=== PATIENT | male | born 1975 | race African-American/Black ===

== ENCOUNTER → 2017-04-28 | Outpatient (CLI) | payer MEDICARE, OTHER ==
--- NOTE | 2017-04-29 06:37 | PN ---
DATE OF SERVICE: 04/28/2017 A 41-year-old gentleman who had been followed in the sleep center for treatment of obstructive sleep apnea/hypopnea syndrome. Patient had polysomnogram in 05/27/2015, which showed moderate close to severe obstructive sleep apnea-hypopnea syndrome with apnea-hypopnea index 27.1. After that, patient had surgery on his thyroid and did not come for the CPAP treatment. At the present time, his sleep schedule is [id number] and 11 and about 6 he gets up and then about 8 he goes back to bed. During sleep, he snores loudly and according to his he has episodes of stopped breathing during the sleep. [place] Sleepiness Scale significantly increased to 16. MEDICATIONS: Depakote, Risperdal, Celexa, Lipitor. PHYSICAL EXAMINATION: During physical exam, patient in no distress. VITAL SIGNS: BP 110/74, HR 82, RR 16. Height 5 feet 9 inches. Weight 253, BMI 37.3. Temperature 98.4. Oxygen saturation at room air 100%. HEENT: PERRLA. EOMI. Oropharynx extremely low position of soft palate. Mallampati IV. NECK: Supple. No JVD, Thyroid is not palpable. LUNGS: Clear to percussion and to auscultation. Good air exchange. No wheezing or rhonchi. HEART: S1, S2 regular. No murmurs, gallops, or rubs. ABDOMEN: Slightly obese. GAMING DEPARTMENT HEAD: Awake, alert, and oriented x3. Cranial nerves 2 to 7 intact. There is no fasciculation or atrophy noted. No focal deficits observed. IMPRESSION: 1. Snoring, witnessed episodes of stopped breathing during sleep, extremely low position of soft palate, history of obstructive sleep apnea-hypopnea syndrome in the past, obstructive sleep apnea-hypopnea syndrome. 2. Obesity; body mass index of 37.3. 3. Hyperlipidemia. 4. Bipolar disorder. 5. History of migraines. 6. Status post closed head injury. 7. Status post goiter removed around 2 years ago. PLAN: 1. Polysomnography for re-evaluation of patient's breathing during this visit. 2. CPAP titration for correction of respiratory abnormalities during sleep. 3. Watching and losing weight. 4. Patient does not drive. Thank you very much for allowing me to participate in the management of your patient. Sincerely, Stephen Mcguire MD, PhD, FAASM Diplomat of [place] [employer], Sleep Medicine Board by [place] [employer] [employer] Car Rental Agency Manager of [facility] [place]
== END | disposition home or self-care (01) ==
LOC: SLEEP 16:03
PROVIDERS: ATTEND Internal Medicine
DX: G47.33 Obstructive sleep apnea (adult) (pediatric) (principal); F31.9 Bipolar disorder, unspecified; E66.9 Obesity, unspecified; E78.5 Hyperlipidemia, unspecified; Z79.899 Other long term (current) drug therapy

== ENCOUNTER → 2017-09-14 | Outpatient (CLI) | payer MEDICARE, OTHER ==
--- NOTE | 2017-09-14 17:59 | PN ---
PROGRESS NOTE DATE OF SERVICE: 09/14/2017 HISTORY: This patient is a 42-year-old gentleman has been followed in the Sleep Center for treatment of obstructive sleep apnea-hypopnea syndrome. The patient recently has been diagnosed with severe obstructive sleep apnea and had CPAP titration which indicated recommended CPAP pressure is 19 cm of water. Presently, patient for about 2 months on treatment with CPAP, able to use it every night without significant problems and today he came for followup visit to check his compliance and to make any necessary adjustments. I checked his CPAP unit. Usage is every night 27/30 nights for more than 4 hours. Average usage is 5.8 hours. Leak is 30 L/minute. Apnea-hypopnea index is 3.0, which is great. [place] Sleepiness Scale today is 12, slightly above normal. MEDICATIONS: Depakote, Risperdal, Celexa, Lipitor. PHYSICAL EXAM: Patient in no distress, BP 131/74, HR 80, RR 14, weight 268, temp 98.2, oxygen saturation on room air 99%. Oropharynx low position of soft palate. Neck Supple, no JVD. Thyroid is not palpable. LUNGS Clear to percussion and to auscultation. Good air exchange. No wheezing or rhonchi. HEART S1, S2 regular. No murmurs, gallops, or rubs. ABDOMEN: Obese. Soft and nontender. Bowel sounds are present. No organomegaly appreciated. EXTREMITIES No clubbing or cyanosis. CHANNEL EXECUTIVE Awake, alert, and oriented X3. Cranial nerves 2 to 7 intact. There is no fasciculation or atrophy noted. No focal deficits observed. IMPRESSION: 1. Severe obstructive sleep apnea-hypopnea syndrome; apnea-hypopnea index 48.2 on control with CPAP at 19 cm of water. Apnea-hypopnea index reading from the machine is 3.0, which is normal range. The patient demonstrated very good compliance with treatment benefitting from treatment. 2. Obesity. 3. Hyperlipidemia. 4. Bipolar disorder. 5. History of migraine. 6. History of goiter status post goiter removed about 2-1/2 years ago. 7. Status post closed head injury. PLAN: 1. Patient will continue to use his CPAP equipment every night. 2. Losing weight. Patient gained about 16 pounds since previous visit. 3. Sleep hygiene with regular time in bed for at least [address] Patient [address] 5. Prescription for all necessary CPAP supplies including mask, tube, filters. Thank you very much for allowing me to participate in management of your patient. Sincerely, Stephen Mcguire MD, PhD, FAASM Diplomat of [employer] Filler Feeder of [facility] [place] MMODL / JH: [id number] /
== END ==
LOC: SLEEP 16:14
PROVIDERS: ATTEND Internal Medicine
DX: G47.33 Obstructive sleep apnea (adult) (pediatric) (principal); E66.9 Obesity, unspecified; E78.5 Hyperlipidemia, unspecified; F31.9 Bipolar disorder, unspecified; G43.909 Migraine, unspecified, not intractable, without status migrainosus; Z98.890 Other specified postprocedural states; Z79.01 Long term (current) use of anticoagulants; Z79.899 Other long term (current) drug therapy

== ENCOUNTER → 2018-10-05 | Outpatient (CLI) | payer MEDICARE, OTHER ==
--- NOTE | 2018-10-05 12:40 | SFUN ---
SLEEP CENTER FOLLOW UP NOTE DATE OF SERVICE: 10/05/2018 A 43-year-old gentleman who has been followed in the Sleep Center for treatment of obstructive sleep apnea-hypopnea syndrome. Patient continued to use his CPAP equipment without significant problems every night for the whole night. Does not have problem with the mask or with the pressure. I checked his CPAP unit. CPAP pressure is 19 cm of water. Usage is 19/30 nights for the last months and around 131 nights out of 118 nights for the last 6 months. Leak in the range of 30 L/minute, but apnea-hypopnea index is absolutely normal for the last 6 months. It is in the range of 3.0. [place] Sleepiness Scale today is 11. MEDICATIONS: Depakote, Risperdal, Celexa, atorvastatin, vitamin D3. PHYSICAL EXAM: Patient in no distress. BP 92/53, HR 84, RR 16, height 5 foot 9 inches, weight 270 pounds. Body mass index 39.8, temperature 97.7, oxygen saturation at room air 98%. OROPHARYNX: Low position of soft palate. ABDOMEN: Slightly obese. Neck Supple, no JVD. Thyroid is not palpable. LUNGS Clear to percussion and to auscultation. Good air exchange. No wheezing or rhonchi. HEART S1, S2 regular. No murmurs, gallops, or rubs. EXTREMITIES No clubbing or cyanosis. TRIAL ATTORNEY Awake, alert, and oriented X3. Cranial nerves 2 to 7 intact. There is no fasciculation or atrophy. noted. No focal deficits observed. IMPRESSION: 1. Severe obstructive sleep apnea-hypopnea syndrome; apnea-hypopnea index 48.2 on control with CPAP at 19 cm of water. Patient benefitting from CPAP therapy. 2. Obesity. 3. Bipolar disorder. 4. Hyperlipidemia. 5. History of migraines. 6. History of goiter treated surgically about 3-1/2 years ago. 7. Status post closed head injury in the past. PLAN: 1. Patient will continue to use his CPAP equipment every night for the whole night. 2. Losing weight. 3. Sleep hygiene with regular time in bed for at least 8 hours. 4. No driving if feeling sleepiness, patient does not drive. 5. Will maintain prescription for all necessary CPAP supplies including mask, tube, filters. Thank you very much for allowing me to participate in the management of your patient. Sincerely, Stephen Mcguire MD, PhD, FAASM Diplomat of [place] [employer] [employer] Felt Cutter of [facility] [place] MMEZEQUIEL / JH: [id number] /
== END | disposition home or self-care (01) ==
LOC: SLEEP 11:02
PROVIDERS: ATTEND Internal Medicine
DX: G47.33 Obstructive sleep apnea (adult) (pediatric) (principal); E66.9 Obesity, unspecified; E78.5 Hyperlipidemia, unspecified; F31.9 Bipolar disorder, unspecified; G43.909 Migraine, unspecified, not intractable, without status migrainosus; Z99.89 Dependence on other enabling machines and devices; Z79.899 Other long term (current) drug therapy; Z87.820 Personal history of traumatic brain injury; Z86.39 Personal history of other endocrine, nutritional and metabolic disease; Z68.39 Body mass index [BMI] 39.0-39.9, adult

== ENCOUNTER → 2019-09-13 | Outpatient (CLI) | payer MEDICARE, OTHER ==
--- NOTE | 2019-09-13 19:08 | PN ---
PROGRESS NOTE DATE OF SERVICE: 09/13/2019 This 44-year-old gentleman has been followed in Sleep Center for treatment of obstructive sleep apnea-hypopnea syndrome. The patient continued to use his CPAP equipment. No snoring with the machine. [place] Sleepiness Scale today is 5, which is normal. I checked his CPAP unit. The patient used it 221 days for the last year with average usage is 6 hours per night. Pressure is 19 cm of water. Leak is 29 L/minute which is acceptable. Apnea-hypopnea index for the whole year only 2.2, which is perfect. MEDICATIONS: Risperdal, Depakote, Celexa, atorvastatin, Topamax, vitamin D3. PHYSICAL EXAM: Patient in no distress. BP 119/69, HR 83, RR 18, height 5 feet 9 inches, weight 263.4, temperature 98.2. Oxygen saturation at room air 99%. Oropharynx low position of soft palate. NECK: Supple, no JVD. Thyroid is not palpable. LUNGS: Clear to percussion and to auscultation. Good air exchange. No wheezing or rhonchi. HEART: S1, S2 regular. No murmurs, gallops, or rubs. ABDOMEN: Slightly obese. Soft and nontender. Bowel sounds are present. No organomegaly appreciated. EXTREMITIES: No clubbing or cyanosis. MIXER CRANE OPERATOR: Awake, alert, and oriented X3. Cranial nerves 2 to 7 intact. There is no fasciculation or atrophy. noted. No focal deficits observed. IMPRESSION: 1. Obstructive sleep apnea-hypopnea syndrome in severe range. The patient benefitting from CPAP therapy, demonstrated borderline compliance. 2. Obesity. 3. Bipolar. 4. Hyperlipidemia. 5. History of migraines. 6. History of goiter treated surgically about 3.5 years ago. 7. Status post closed head in the past. PLAN: 1. Patient will continue to use CPAP equipment every night for the whole night. 2. Losing weight. 3. I will maintain all necessary prescriptions for CPAP supplies including mask, tube, filters. 4. Watching and losing weight. 5. Sleep hygiene with regular time in bed for at least 7-1/2 to 8 hours. 6. No driving if feeling sleepiness. 7. Followup visit in 1 year or earlier if the patient has any problems. Thank you very much for allowing me to participate in management of your patient. Sincerely, Stephen Mcguire MD, PhD, FAASM Diplomat of [employer] Medicine Gas Mask Assembler of [facility] [place] MMEZEQUIEL / JH: [id number] /
== END | disposition home or self-care (01) ==
LOC: SLEEP 16:40
PROVIDERS: ATTEND Internal Medicine
DX: G47.33 Obstructive sleep apnea (adult) (pediatric) (principal); E78.5 Hyperlipidemia, unspecified; F31.9 Bipolar disorder, unspecified; E66.9 Obesity, unspecified; Z98.890 Other specified postprocedural states; Z86.69 Personal history of other diseases of the nervous system and sense organs; Z99.89 Dependence on other enabling machines and devices; Z86.39 Personal history of other endocrine, nutritional and metabolic disease